=== PATIENT | female | born 1975 | race African-American/Black ===

== ENCOUNTER 2018-02-15 18:07 | Emergency (ER) | payer OTHER ==
[~2018-02-15] VITALS: Ht 180.3 cm; Wt 122.0 kg
[~2018-02-15 18:07] MED LIST: GABA100C4 PO; TOBRA.3%O EACH EYE; TYLE3 PO; VITA5000 PO
[2018-02-15 18:13] VITALS: BP 147/92; PULSE 70; RESP 18; TEMP 98.7; O2SAT 98
[2018-02-15] MEDS ORDERED: PAXI10TA8 PO (19:21)
[2018-02-15] MEDS ORDERED: MONT10TA2 PO (19:21)
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
[2018-02-15] MEDS ORDERED: KETOROLAC TROMETHAMINE 60 MG/2 ML (IM) VIAL IM ONE (19:30)
[2018-02-15] MEDS ORDERED: ORPHENADRINE INJ 60 MG/2 ML AMP IM ONE (19:30)
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
[2018-02-15] MEDS ORDERED: IBUP1TAB7 PO (20:48)
[2018-02-15] MEDS ORDERED: BACL10TA PO (20:48)
== END 2018-02-15 21:06 | disposition home or self-care (01) ==
LOC: NEPD 18:07
DX: S16.1XXA Strain of muscle, fascia and tendon at neck level, initial encounter (principal); S39.012A Strain of muscle, fascia and tendon of lower back, initial encounter; D64.9 Anemia, unspecified; F40.240 Claustrophobia; V43.52XA Car driver injured in collision with other type car in traffic accident, initial encounter; Z79.899 Other long term (current) drug therapy
CPT/HCPCS: 71045; 72100; 72125; 96372; 99284; J1885; J2360

== ENCOUNTER 2018-02-18 18:33 | Emergency (ER) | payer SELFPAY ==
[~2018-02-18] VITALS: Ht 180.3 cm; Wt 110.0 kg
[~2018-02-18 18:33] MED LIST changes: +BACL10TA PO; -GABA100C4 PO; +IBUP1TAB7 PO; +MONT10TA2 PO; +PAXI10TA8 PO; -TOBRA.3%O EACH EYE; -TYLE3 PO; -VITA5000 PO
[2018-02-18 18:37] VITALS: BP 104/60; PULSE 80; RESP 18; TEMP 99.6; O2SAT 97
[2018-02-18] MEDS ORDERED: [UNRECOGNIZED DRUG - OTHER] (18:55)
[2018-02-18] MEDS ORDERED: DEXAMETHASONE SOD PHOS 4 MG/ML VIAL IM ONE (19:00)
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
[2018-02-18] MEDS ORDERED: AMOX500T PO (19:28)
[2018-02-18] MEDS ORDERED: MAGICPED SWISH-SWAL (19:28)
[2018-02-18] MEDS ORDERED: AMOXICILLIN (TRIHYDRATE) 500 MG CAP PO ONE (19:30)
== END 2018-02-18 19:46 | disposition home or self-care (01) ==
LOC: NEPK 18:33
DX: J02.0 Streptococcal pharyngitis (principal); D64.9 Anemia, unspecified; F40.240 Claustrophobia; Z79.899 Other long term (current) drug therapy
CPT/HCPCS: 87880; 96372; 99283; J1100